=== PATIENT | male | born 1985 | race Caucasian/White ===

== ENCOUNTER 2017-12-09 12:33 | Emergency (ER) | payer BC, MEDICAID ==
[~2017-12-09] VITALS: Ht 182.9 cm; Wt 113.0 kg
[2017-12-09 12:38] VITALS: BP 128/94
[2017-12-09] MEDS ORDERED: ERYT1OIN6 EACHEYE (13:06)
== END 2017-12-09 13:16 | disposition home or self-care (01) ==
LOC: ER 12:34
DX: B34.9 Viral infection, unspecified (principal); H10.9 Unspecified conjunctivitis; G89.29 Other chronic pain; Z79.899 Other long term (current) drug therapy
CPT/HCPCS: 99283

== ENCOUNTER 2018-02-05 11:32 | Emergency (ER) | payer MEDICAID ==
[~2018-02-05] VITALS: Ht 182.9 cm; Wt 114.5 kg
[2018-02-05] MEDS ORDERED: ondansetron 4mg rapidly disintigrating tab PO ONE (12:20)
[2018-02-05] MEDS ORDERED: ALBU8.5H8 IH (13:03)
[2018-02-05] MEDS ORDERED: ONDA4TAB6 PO (13:03)
[2018-02-05 13:14] VITALS: BP 131/73
== END 2018-02-05 13:51 | disposition home or self-care (01) ==
LOC: ER 11:34
DX: J98.01 Acute bronchospasm (principal); R11.0 Nausea; R42 Dizziness and giddiness; G89.29 Other chronic pain; Z79.899 Other long term (current) drug therapy
CPT/HCPCS: 71046; 99284

== ENCOUNTER 2019-01-21 03:41 | Emergency (ER) | payer MEDICAID ==
[~2019-01-21] VITALS: Ht 182.9 cm; Wt 113.6 kg
[~2019-01-21 03:41] MED LIST: ALBU8.5H8 IH; ONDA4TAB6 PO
[2019-01-21] MEDS ORDERED: iohexol 350MG/ML 100ml bottle IV ONE (03:50)
[2019-01-21] MEDS ORDERED: LORazepam 2 mg/ml vial IV STA (04:05)
[2019-01-21] MEDS ORDERED: ondansetron/PF 4mg/2ml inj IV STA (04:05)
[2019-01-21] MEDS ORDERED: LORazepam 2 mg/ml vial IV ONE (04:10)
[2019-01-21 04:56] LABS: BASOPHILS # (AUTO) 0.1 X10'3 (0-0.2); BASOPHILS % (AUTO) 0.6 % (0-1); EOSINOPHILS # (AUTO) 0.1 X10'3 (0-0.9); EOSINOPHILS % (AUTO) 0.7 % (0-6); HEMATOCRIT 42.2 % (42.0-52.0); HEMOGLOBIN 14.8 g/dl (14.0-17.9); LYMPHOCYTES # (AUTO) 2.1 X10'3 (1.1-4.8); LYMPHOCYTES % (AUTO) 25.2 % (21-51); MEAN CORPUSCULAR HGB CONC 35.1 g/dL (33.0-36.5); MEAN CORPUSCULAR VOLUME 85.7 FL (78-98); MEAN PLATELET VOLUME 9.5 FL (7.4-10.4); MONOCYTES # (AUTO) 0.7 X10'3 (0-0.9); NEUTROPHILS # (AUTO) 5.4 X10'3 (1.8-7.7); NEUTROPHILS % (AUTO) 64.5 % (42-75); PLATELET COUNT 223 X10'3 (140-440); RED BLOOD COUNT 4.92 X10'6 (4.70-6.10); RED CELL DISTRIBUTION WIDTH 13.3 % (11.5-14.5); WHITE BLOOD COUNT 8.3 X10'3 (4.5-11.0)
[2019-01-21 05:05] LABS: ALANINE AMINOTRANSFERASE 41 U/L (12-78); ALBUMIN 4.1 G/DL (3.4-5.0); ALBUMIN/GLOBULIN RATIO 1.2 (1.1-1.5); ALKALINE PHOSPHATASE 97 IU/L (46-116); ANION GAP 7 (8-16); ASPARTATE AMINO TRANSFERASE 25 U/L (10-37); BILIRUBIN,TOTAL 0.3 MG/DL (0.1-1.0); BLOOD UREA NITROGEN 12 MG/DL (7-18); CHLORIDE 106 MMOL/L (99-107); CREATININE 1.09 MG/DL (0.60-1.10); GLUCOSE 95 MG/DL (70-104); POTASSIUM 3.6 MMOL/L (3.5-5.1); SODIUM 139 MMOL/L (135-145); TOTAL PROTEIN 7.4 G/DL (6.4-8.2); eGFR 77 ML/MIN
--- NOTE | 2019-01-21 05:09 | NUR ---
Pt just got back from CT, he was able to accomplish it without difficulty. He was smiling when he got back.
[2019-01-21 05:17] LABS: ETHANOL < 0.010 GM/DL (0.0-0.010)
--- NOTE | 2019-01-21 11:30 | NUR ---
Patient was just moved from ER bed 16 to Overflow bed 20.
--- NOTE | 2019-01-21 11:30 | NUR ---
Patient was just moved from ER bed 16 to Overflow bed 20.
[2019-01-21] MEDS ORDERED: LORazepam 1 MG tablet PO PRN (11:35)
--- NOTE | 2019-01-21 11:38 | NUR ---
MARTINEZ AMIN NOTIFIED VIA CELL PHONE THAT PT NEEDS TO BEED SEEN IN BED 20 OVERFLOW.
--- NOTE | 2019-01-21 11:50 | NUR ---
PT'S IV 20 G R AC REMOVED CANULA INTACT.
--- NOTE | 2019-01-21 13:30 | NUR ---
Patient's mother is sitting at the bedside while the patient is sleeping. Breathing is even and unlabored.
--- NOTE | 2019-01-21 14:10 | NUR ---
[facility] tried arousing patient to evaluate him, but the patient would not wake up. [facility] said that he would be back to see him.
--- NOTE | 2019-01-21 17:35 | NUR ---
Hasmukh from [facility] here to evaluate patient. Awakened patient with some difficulty. Patient eventually sat up and engaged in conversation.
--- NOTE | 2019-01-21 23:30 | NUR ---
Pt woken up and encouraged to urinate. Pt cooperative and pleasant. Urine sample collected. Pt needs met. Pt returned to bed.
[2019-01-22 00:25] LABS: CLARITY,URINE CLEAR (Clear); COLOR,URINE YELLOW (Yellow); GLUCOSE, URINE NEGATIVE (Neg); KETONES,URINE TRACE mg/dl (Neg); LEUKOCYTE ESTERASE ,URINE NEGATIVE (Neg); NITRITES, URINE NEGATIVE (Neg); OCCULT BLOOD,URINE NEGATIVE (Neg); PROTEIN,URINE NEGATIVE (Neg); UROBILINOGEN,URINE 0.2 E.U/dL (0.2-1.0)
[2019-01-22 00:31] LABS: UA COLLECTION TYPE CLN CATCH MIDSTREAM; URINE AMPHETAMINE SCREEN POSITIVE (Neg); URINE BARBITUATE SCREEN NEGATIVE (Neg); URINE BENZODIAZEPINES SCREEN NEGATIVE (Neg); URINE CANNABINOID SCREEN NEGATIVE (Neg); URINE COCAINE SCREEN NEGATIVE (Neg); URINE METHADONE SCREEN NEGATIVE (Neg); URINE OPIATE SCREEN POSITIVE (Neg); URINE PHENCYCLIDINE SCREEN NEGATIVE (Neg)
--- NOTE | 2019-01-22 01:18 | NUR ---
UA results faxed to [facility]. Unable to confirm receipt as [id number] hours.
[2019-01-22 05:52] VITALS: BP 120/64
--- NOTE | 2019-01-22 06:44 | NUR ---
Pt resting on right side with eyes closed, respirations normal
--- NOTE | 2019-01-22 09:15 | NUR ---
Patient awakened for breakfast and ate a little; now back to sleep
--- NOTE | 2019-01-22 11:00 | NUR ---
Pt visiting with sister at bedside, pleasant interactions. Pt laughing frequently with sister
--- NOTE | 2019-01-22 12:49 | NUR ---
Pt accepted to [facility] and taken to floor by DAVID Su. Belongings with him.Given his dc paperwork
[2019-01-23] MEDS ORDERED: ALBU8.5H8 INH (08:28)
[2019-01-23] MEDS ORDERED: ONDA4TAB6 PO (08:28)
== END 2019-01-22 13:01 ==
LOC: ER 03:42
DX: T14.91XA Suicide attempt, initial encounter (principal); S10.81XA Abrasion of other specified part of neck, initial encounter; G89.29 Other chronic pain; Z79.899 Other long term (current) drug therapy; X83.8XXA Intentional self-harm by other specified means, initial encounter; Y93.89 Activity, other specified; Y92.89 Other specified places as the place of occurrence of the external cause; Y99.8 Other external cause status
CPT/HCPCS: 36415; 70498; 80053; 80305; 80320; 81003; 84443; 85025; 96374; 96375; 99285; J2060; J2405; Q9967

== ENCOUNTER 2019-01-22 11:48 | Inpatient (IN) | payer MEDICAID ==
[~2019-01-22] VITALS: Ht 182.9 cm; Wt 109.0 kg
--- NOTE | 2019-01-22 12:52 | NUR ---
Admission note: Pt accepted by [facility] for Dr Bhatia for depression. Pt arrives ambulatory escorted by security to [address]. Pt arrives at 12:45. Pt on 5150 for DTS. Pt was found unconscious with belt around his neck tied to bed post. Pt has been cooperative with staff. Pt oriented to the unit. Pt has history of bulging lumbar disc surgery, Lymphoma, "Cyst in the brain" and seizures. Pt had CT neck in the ER that was negative.
[2019-01-22] MEDS ORDERED: acetaminophen 325mg tablet PO PRN ×2 (13:20)
[2019-01-22] MEDS ORDERED: magnesium hydroxide 30ml (MOM) UD suspension PO PRN (13:20)
[2019-01-22] MEDS ORDERED: mag hydrox/Alum hydrox/simeth 30ml oral suspension PO PRN (13:20)
[2019-01-22] MEDS ORDERED: LORazepam 1 MG tablet PO PRN (13:20)
[2019-01-22] MEDS ORDERED: ondansetron 4mg rapidly disintigrating tab PO PRN (13:20)
[2019-01-22] MEDS ORDERED: hydrOXYzine 25 MG tablet PO PRN (13:20)
[2019-01-22] MEDS ORDERED: loperamide 2mg capsule PO PRN (13:20)
[2019-01-22] MEDS ORDERED: tuberculin, purif. prot. deriv. 5 units/0.1ml ID ONE (13:20)
[2019-01-22] MEDS ORDERED: albuterol 2.5 MG/3 ML nebule NEB PRN (13:35)
--- NOTE | 2019-01-22 15:53 | NUR ---
Nursing Progress Note: Legal hold: 5150 Client on voluntary/involuntary status for GD/DTS/DTO. DTS Report received from ER Overflow Nurse: Siri RN Why are they here: Patient was found with his belt around his neck, tied to his bed and unconscious. Patient appeared to have attempted to hang himself. Friends called paramedics, patient was resusitated and brought to the ER. Upon questioning, patient stated "Without going into too much detail, I like to have a little fun with my lady friends." The implecation being that hanging self was possibly done for pleasure. Assessment What has happened this shift: S/I, H/I: Pt. denies A/VH: Denies Sleep: Lays on his bed with eyes closed. Wakes easily ADL's: Showerd Group attendance: Did not attend Were meds taken: No meds Ordered Any med S/E: N/A Mental Status Exam Appearance: Clean, neat Eye contact: Poor Behavior:Quiet, withdrawn Speech: Clear, concise Mood:Depressed, Tearful Affect: Animated Thought process: Clear Thought Content: Appropriate Cognition: High Functioning Insight: Evident Judgment: Impaired. Poor problem solving Interventions PRN's used:None Therapeutic interventions:Therapeutic interventions: 1:1 assessment, therapeutic conversation, medication administration/education/monitoring, reality orientation, limit setting, redirection, positive reinforcement, Q 15 min safety checks. Restraints/seclusion/emergency medication: N/A Restraints/seclusion/emergency medication: Justification of Continued Inpatient Treatment: New admission. Patient will be evaluated by Psychiatrist for further treatment.
[2019-01-22 20:13] VITALS: BP 124/58
--- NOTE | 2019-01-23 01:45 | NUR ---
Nursing Progress Note: Legal hold: 5150 Client on voluntary/involuntary status for: DTS Report received from DAVID Greer with [facility] Why are they here: Patient was found with his belt around his neck, tied to his bed and unconscious. Patient appeared to have attempted to hang himself. Friends called paramedics, patient was resuscitated and brought to the ER. Upon questioning, patient stated "Without going into too much detail, I like to have a little fun with my lady friends." The implication being that hanging self was possibly done for pleasure. Assessment What has happened this shift: Pt slept in room aside from attending HS snack. Pt denies SI or that he was ever SI, stating "It was a misunderstanding by my roommate. I have a gf and no one checked in about that...". Pt continued. " I feel fine, I'm ready to go home." Pt was inordinately thankful, saying "sweetie, thank you so much, you are so kind" as the end to every interaction. Pt stated he doesn't have a job currently, has 3 kids whom " I just adore them", and lives with a roommate. His gf visits during the week. Pt didn't offer much information regarding the attempt that brought him into the ED; insisted it was not a suicide attempt, and casually shrugged it off, stating he is just trying to sleep to pass the time. S/I, H/I: Denies A/VH: Denies Sleep: See Sleep Hour Charting ADL's: Independent Group attendance: Y - HS Snack Were meds taken: N - Only PRNs Any med S/E: N/A Mental Status Exam Appearance: Clean, neat wearing personal shirt and unit bottoms with nonskid socks Eye contact: Intermittent Behavior: Sleeping, attended HS Snack, Polite and cooperative Speech: Clear, concise Mood: "I feel fine" Affect: Animated Thought process: Linear Thought Content: Wanting to go home Cognition: A&Ox4 Insight: Fair Judgment: Impaired Interventions PRN's used: None Therapeutic interventions: Therapeutic interventions: 1:1 assessment, therapeutic conversation, positive reinforcement, Q 15 min safety checks. Restraints/seclusion/emergency medication: N/A Restraints/seclusion/emergency medication: Justification of Continued Inpatient Treatment: New admission. Patient will be evaluated by Psychiatrist for further treatment.
[2019-01-23 08:25] LABS: CHOL/HDL RATIO 3.9 (0.00-4.99); CHOLESTEROL 146 MG/DL (0-200); HDL CHOLESTEROL 37 MG/DL (35-60); LDL CHOLESTEROL 97 MG/DL (50-100); TRIGLYCERIDES 86 MG/DL (20-135)
[2019-01-23] MEDS ORDERED: ALBU8.5H8 INH (08:28)
[2019-01-23] MEDS ORDERED: ONDA4TAB6 PO (08:28)
[2019-01-23 08:39] LABS: HEMOGLOBIN A1C 5.5 % (4.5-6.2)
--- NOTE | 2019-01-23 17:00 | NUR ---
Nursing Progress Note: Legal hold: 5150 Client on voluntary/involuntary status for: DTS Report received from DAVID Francisco with [facility] Why are they here: Patient was found with his belt around his neck, tied to his bed and unconscious. Patient appeared to have attempted to hang himself. Friends called paramedics, patient was resuscitated and brought to the ER. Upon questioning, patient stated "Without going into too much detail, I like to have a little fun with my lady friends." The implication being that hanging self was possibly done for pleasure. Assessment What has happened this shift: Pt. sleeping at beginning of shift. During assessment pt. appears agitated, stating, "When is the shrink going to see me?" Pt. denies SI/HI, A/V H. When asked how pt. came ot the hospital pt. states, "I had a belt around my neck, it wasn't a suicide attempt, just some [employer] stuff". Pt. Pt.'s called informing this RN that Pt. had previous suicide attempts with cocaine and carbon monoxide poisoning and that she will be serving him paperwork for emergency custody of children and a domestic violence restraining order. Pt. attended group morning and afternoon group. Pt. Showered. Pt. became increasingly agitated and offerred PRN medication, pt. declined and went to lay down. Pt. refused his dinner. S/I, H/I: Denies A/VH: Denies Sleep: See Sleep Hour Charting ADL's: Independent. Pt. showered today. Group attendance: Y Were meds taken: N/A Any med S/E: N/A Mental Status Exam Appearance: Clean, neat wearing personal shirt and unit bottoms with nonskid socks Eye contact: Intermittent Behavior: Sleeping, attended HS Snack, Polite and cooperative Speech: Clear, concise Mood: Euthmyc Affect: Animated Thought process: Linear Thought Content: Wants to go home. Cognition: A&Ox4 Insight: Fair Judgment: Impaired Interventions PRN's used: None Therapeutic interventions: Therapeutic interventions: 1:1 assessment, therapeutic conversation, positive reinforcement, Q 15 min safety checks. Restraints/seclusion/emergency medication: N/A Restraints/seclusion/emergency medication: Justification of Continued Inpatient Treatment: New admission. Patient will be evaluated by Psychiatrist for further treatment.
--- NOTE | 2019-01-23 17:43 | NUR ---
COLLATERAL CONTACT: ROGER contacted pt's roommate, Karishma at [phone], who reports pt is being dishonest regarding the incident of the belt around pt's neck. Karishma states pt was found in his room with a belt around his neck. The belt was looped around the bedpost and he was between the wall and the bed, pulling himself away from the bedpost with his body weight causing asphyxiation. Pt was fully clothed w/ the exception of his tshirt removed. When the belt was removed from the pt's neck he was laid flat and began breathing again. Karishma provided ROGER w/ contact information for the two people who found pt in his room. ROGER made TC to roommate's friend, Juan Carlos at [phone], who reports he heard noise coming from pt's room after pt said he wasn't feeling well. Per Juan Carlos, it sounded like singing at first then like a gasping noise once he opened the bedroom door. Juan Carlos states he could not find the light switch to the room so he requested the homeowner's boyfriend to help him get the lights on. Once the light was turned on, pt was observed with belt around bedpost and his neck. Pt was between the wall and the bed, with his body weight toward the floor. Per Juan Carlos, it appeared pt had just started the asyphixiation, as he easily began breathing and consciousness. ROGER made TC to pt's roommate's boyfriend, Edwin at [phone], who reports same story as Karishma and Juan Carlos. He further reports pt's eyes were fluttering and it appeared pt was pretending to be unconscious. He reports pt has faked having cancer dx and seizure dx. Edwin agrees to gather friends together for a team meeting to discuss the events with patient and further reports this was likely a way to gain attention rather than an actual suicide attempt. Pt cannot return to Karishma's home upon discharge due to the events that have occurred. Karishma emailed text messages from pt regarding discharge planning to ROGER email for review. YO Hamm Addendum: 01/23/19 at 1851 by Lindsay Jane SS Addition to note: ROGER made TC to pt's friend, Karishma, who agreed to gather all persons at the home the night of the incident to attend an urgent Family Team Meeting (FTM). ROGER contacted pt's mother, who has agreed to attend and coordinate w/ pt's for attendance at FTM also. FTM is scheduled for 12:00 hours on 01/24/2019. YO Hamm
[2019-01-23 20:26] VITALS: BP 110/59
--- NOTE | 2019-01-24 02:52 | NUR ---
Nursing Progress Note: Legal hold: 5150 Client on involuntary status for DTS Report received from nurse with use of [facility]: DAVID Greer Why are they here: Patient was found with his belt around his neck, tied to his bed and unconscious. Patient appeared to have attempted to hang himself. Roommate called paramedics, patient was resuscitated and brought to the ER. Upon questioning, patient stated "Without going into too much detail, I like to have a little fun with my lady friends." The implication being that hanging self was possibly done for pleasure. However, pt. does have stressors present AEB separation from his and hx or substance abuse. Also, possible hx of overdose attempt. Toxicology screen positive for opiates and amphetamines. Assessment What has happened this shift: Pt. presents as restless and agitated at the beginning of the shift, and is up pacing the hallway. This communications writer introduced self and attempted to establish rapport, pt's speech is pressured with agitation, however he is cooperative. He reports concern about meeting being set-up tomorrow by manager social work. This communications writer provided active listening and voiced understanding and pt. reported content. Pt. continues to minimize events leading up to hospitalization, and he continues to appear guarded and disconnected. He accepts PRN Atrax r/t anxiety and agitation, and lays down, he remains here throughout the shift. S/I, H/I: Denies A/VH: Denies Sleep: Pt. retreats to bed at approximately 1915 following administration of PRN Atrax, remains asleep throughout the shift ADL's: Unable to assess, pt. in bed throughout the shift Group attendance: Were meds taken: N/S Any med S/E: None Mental Status Exam Appearance: Neat and appropriately dressed Eye contact: Fair Behavior: Cooperative, restless, slightly agitated, and fatigued Speech: WNL, slightly pressured when agitated Mood: Slightly agitated and restless Affect: Constricted Thought process: Linear Thought Content: Preoccupation with desire to discharge and not revealing personal information Cognition: A&O Insight: Poor to fair Judgment: Poor to fair Interventions PRN's used: Atrax Therapeutic interventions: Introduced self and attempted to establish rapport, maintained a safe and supportive environment, observed for changes in behavior and needed intervention, provided medication education, encouraged independent performance of ADLs, and maintained Q 15 in safety checks. Restraints/seclusion/emergency medication: N/A Justification of Continued Inpatient Treatment: Pt. requires interruption of current crisis and medication adjustments.
[2019-01-24 07:40] VITALS: BP 108/62
[2019-01-24] MEDS ORDERED: LORazepam 2 mg/ml vial IM PRN (14:50)
[2019-01-24] MEDS ORDERED: diphenhydrAMINE 50 mg/ml inj IM PRN (14:50)
[2019-01-24] MEDS ORDERED: diphenhydrAMINE 25mg capsule PO PRN (14:50)
[2019-01-24] MEDS ORDERED: LORazepam 1 MG tablet PO PRN (14:50)
[2019-01-24] MEDS ORDERED: haloperidol 5mg tablet PO PRN (14:50)
[2019-01-24] MEDS ORDERED: haloperidol lactate 5mg/ml inj IM PRN (14:50)
--- NOTE | 2019-01-24 15:13 | NUR ---
1:1 DISCHARGE PLANNING FTM occurred. Pt had difficulty providing transperancy of his bx with his support system. Pt admitted the belt around his neck was actually a suicide attempt. SW provided w/ Temporary Restraining Order and Custody paperwork for pt. SW provided paperwork to pt with security present. Pt response was blunted. SW spoke w/ pt's mother, who reports she will assist pt in entering tx services for substance use disorder upon discharge. Lindsay Jane, EMILYW
--- NOTE | 2019-01-24 17:48 | NUR ---
Nursing Progress Note: Legal hold: 5150 Client on involuntary status for DTS Report received from nurse with use of [facility]: DAVID Francisco Why are they here: Patient was found with his belt around his neck, tied to his bed and unconscious. Patient appeared to have attempted to hang himself. Roommate called paramedics, patient was resuscitated and brought to the ER. Upon questioning, patient stated "Without going into too much detail, I like to have a little fun with my lady friends." The implication being that hanging self was possibly done for pleasure. However, pt. does have stressors present AEB separation from his and hx or substance abuse. Also, possible hx of overdose attempt. Toxicology screen positive for opiates and amphetamines. During family session pt. admitted that it was a suicde attempt. Assessment What has happened this shift: Pt. did not go to group. When attempting to do 1:1, pt. preteningding to be asleep. 1:1 eventually done at bedside. Pt. gave minimal response to questions during 1:1. Pt. states, "I just want to go home". Pt. refused breakfast. Pt. had meeting with family and staff at noon where pt. reportedly confessed to a suicide attempt. Pt. ate his lunch. Pt. given paper work for restraining order his placed against him as well as emergency custody of the children his will obtain. Pt. began to cry when he recieved this information but did not act out. S/I, H/I: Denies A/VH: Denies Sleep: Pt. retreats to bed at approximately 1915 following administration of PRN Atrax, remains asleep throughout the shift ADL's: Unable to assess, pt. in bed throughout the shift Group attendance: Were meds taken: N/S Any med S/E: None Mental Status Exam Appearance: Neat and appropriately dressed Eye contact: Fair Behavior: Cooperative, restless, slightly agitated, and fatigued Speech: WNL, slightly pressured when agitated Mood: Slightly agitated and restless Affect: Constricted Thought process: Linear Thought Content: Preoccupation with desire to discharge and not revealing personal information Cognition: A&O Insight: Poor to fair Judgment: Poor to fair Interventions PRN's used: Atrax Therapeutic interventions: Introduced self and attempted to establish rapport, maintained a safe and supportive environment, observed for changes in behavior and needed intervention, provided medication education, encouraged independent performance of ADLs, and maintained Q 15 in safety checks. Restraints/seclusion/emergency medication: N/A Justification of Continued Inpatient Treatment: Pt. requires interruption of current crisis and medication adjustments.
[2019-01-24 20:40] VITALS: BP 130/77
--- NOTE | 2019-01-25 01:25 | NUR ---
Nursing Progress Note: Legal hold: 5150 Client on involuntary status for DTS Report received from nurse with use of [facility]: Binh RN Why are they here: Patient was found with his belt around his neck, tied to his bed and unconscious. Patient appeared to have attempted to hang himself. Roommate called paramedics, patient was resuscitated and brought to the ER. Upon questioning, patient stated "Without going into too much detail, I like to have a little fun with my lady friends." The implication being that hanging self was possibly done for pleasure. However, pt. does have stressors present AEB separation from his and hx or substance abuse. Also, possible hx of overdose attempt. Toxicology screen positive for opiates and amphetamines. FTM took place on 01/24/19, and pt. admitted to lying to friends and family about health conditions and admitted to attempted suicide. Pt. was then served with divorce papers and restraining order. Assessment What has happened this shift: Pt. laying in bed at the beginning of the shift, he reports that he is feeling tired after receiving Ativan earlier following the family team meeting. When this newswriter questioned pt. regarding the meeting he stated, "The meeting went OK, but I jaylin received a double whammy, I got served paperwork afterwards. I just need to nap for bit and then I will get up later." Pt. continues to present as cooperative, withdrawn, guarded, and superficial (minimizing any feelings and the events leading up to hospitalization). Pt. remains in bed throughout the shift, and refuses to get up to attend HS snack. Attempted complete 1:1 at bedside, however pt. presenting as fatigued and does not open his eyes during assessment. He will answer direct questions minimally with a yes/no response. Pt. denies any S/I, depression, or anxiety. He reports he has been sleeping well, and has been attending groups. However, when this newswriter read AM shift note, it was discovered that pt. had refused to go to groups today. S/I, H/I: Denies A/VH: Denies Sleep: Pt. reports he has been sleeping well, denies any nightmares ADL's: Unable to assess, pt. in bed throughout the shift Group attendance: Pt. reports that he has been attending groups. However, when this newswriter read AM shift note, it was discovered that pt. had refused to go to groups today. Were meds taken: N/A, none scheduled Any med S/E: None Mental Status Exam Appearance: Neat and appropriately dressed Eye contact: Fair Behavior: Cooperative, withdrawn, isolative, and fatigued. Psychomotor activity is WNL Speech: Soft, only answers direct questions minimally with yes/no response Mood: Guarded, appears depressed Affect: Blunted Thought process: Linear Thought Content: Guarded and superficial, difficult to assess Cognition: A&O X4 Insight: Poor Judgment: Poor Interventions PRN's used: None Therapeutic interventions: Maintained a safe and supportive environment, insured contract for safety, observed for changes in behavior and needed intervention, encouraged independent performance of ADLs, and maintained Q 15 in safety checks. Restraints/seclusion/emergency medication: N/A Justification of Continued Inpatient Treatment: Pt. continues to require a safe and supportive environment and interruption of current crisis.
[2019-01-25 08:00] VITALS: BP 105/64
--- NOTE | 2019-01-25 15:03 | NUR ---
Discharge note: Discharged at 1503, nissa DANA. provided with all belongings, discharge instructions and stated understanding of discharge plan. Escorted to Lobby by ROBERT Infante. Transportation provided by his mother. Addendum: 01/25/19 at 1507 by Makayla Etienne RN Patient stated his intention to honor restraining order, understanding that violation could result in him loosing visitation rights with his three daughters.
== END 2019-01-25 15:03 | disposition home or self-care (01) | DRG 755 ==
LOC: ADULT MH 11:48
PROVIDERS: ADMIT Psychiatry & Neurology Psychiatry; ATTEND Psychiatry & Neurology Psychiatry
DX: F43.24 Adjustment disorder with disturbance of conduct (principal); G93.40 Encephalopathy, unspecified; R09.01 Asphyxia; R45.851 Suicidal ideations; F32.9 Major depressive disorder, single episode, unspecified; G89.29 Other chronic pain; M54.9 Dorsalgia, unspecified; F19.10 Other psychoactive substance abuse, uncomplicated
CPT/HCPCS: 36415; 80061; 83036; 87070; 99285; Q0163; Q0177

== ENCOUNTER 2019-02-04 07:52 | Emergency (ER) | payer MEDICAID ==
[~2019-02-04] VITALS: Ht 182.9 cm; Wt 109.1 kg
[~2019-02-04 07:52] MED LIST changes: +ALBU8.5H8 INH
[2019-02-04 08:01] VITALS: BP 160/84
[2019-02-04] MEDS ORDERED: LORA1TAB PO (08:43)
== END 2019-02-04 08:53 | disposition home or self-care (01) ==
LOC: ER 07:52
DX: F41.9 Anxiety disorder, unspecified (principal); F32.9 Major depressive disorder, single episode, unspecified; R41.3 Other amnesia; G89.29 Other chronic pain; Z79.899 Other long term (current) drug therapy
CPT/HCPCS: 99284

== ENCOUNTER 2019-03-19 15:29 | Emergency (ER) | payer BC, MEDICAID ==
[~2019-03-19] VITALS: Ht 182.9 cm; Wt 108.0 kg
[2019-03-19 15:40] VITALS: BP 142/94
[2019-03-19] MEDS ORDERED: LORA1TAB PO (15:48)
== END 2019-03-19 16:06 | disposition home or self-care (01) ==
LOC: ER 15:30
DX: F41.9 Anxiety disorder, unspecified (principal); F32.9 Major depressive disorder, single episode, unspecified; G89.29 Other chronic pain; Z76.0 Encounter for issue of repeat prescription; Z79.899 Other long term (current) drug therapy
CPT/HCPCS: 99283

== ENCOUNTER 2019-03-28 03:26 | Emergency (ER) | payer BC, MEDICAID ==
[~2019-03-28] VITALS: Ht 182.9 cm; Wt 109.1 kg
[2019-03-28 03:36] VITALS: BP 139/73
[2019-03-28] MEDS ORDERED: LORA1TAB PO (04:10)
== END 2019-03-28 04:19 | disposition home or self-care (01) ==
LOC: ER 03:26
DX: F41.9 Anxiety disorder, unspecified (principal); F32.9 Major depressive disorder, single episode, unspecified; G89.29 Other chronic pain; F17.210 Nicotine dependence, cigarettes, uncomplicated; Z79.899 Other long term (current) drug therapy
CPT/HCPCS: 99284

== ENCOUNTER 2019-06-02 08:54 | Emergency (ER) | payer BC, MEDICAID ==
[~2019-06-02] VITALS: Ht 182.9 cm; Wt 109.1 kg
[2019-06-02 09:14] VITALS: BP 137/59
== END 2019-06-02 09:16 | disposition home or self-care (01) ==
LOC: ER 08:56
DX: F10.99 Alcohol use, unspecified with unspecified alcohol-induced disorder (principal); F15.90 Other stimulant use, unspecified, uncomplicated; G89.29 Other chronic pain; F41.9 Anxiety disorder, unspecified; F32.9 Major depressive disorder, single episode, unspecified; F17.210 Nicotine dependence, cigarettes, uncomplicated; Z79.899 Other long term (current) drug therapy; Y90.9 Presence of alcohol in blood, level not specified
CPT/HCPCS: 99283

== ENCOUNTER 2019-06-17 00:07 | Emergency (ER) | payer BC, MEDICAID ==
[~2019-06-17] VITALS: Ht 182.9 cm; Wt 109.1 kg
[2019-06-17] MEDS ORDERED: SULF1TAB49 PO (00:27)
[2019-06-17] MEDS ORDERED: CEPH500C5 PO (00:27)
[2019-06-17] MEDS ORDERED: clindamycin phosphate 150mg/ml inj. IM ONE (00:30)
[2019-06-17 00:46] VITALS: BP 129/77
== END 2019-06-17 00:48 | disposition home or self-care (01) ==
LOC: ER 00:08
DX: L02.415 Cutaneous abscess of right lower limb (principal); L02.416 Cutaneous abscess of left lower limb; G89.29 Other chronic pain; F15.90 Other stimulant use, unspecified, uncomplicated; F17.210 Nicotine dependence, cigarettes, uncomplicated
CPT/HCPCS: 96372; 99283; J3490

== ENCOUNTER 2021-06-27 07:04 | Emergency (ER) | payer MEDICAID ==
[~2021-06-27] VITALS: Ht 182.9 cm; Wt 100.0 kg
[~2021-06-27 07:04] MED LIST changes: +ALBU8.5H17 IH; +ALBU8.5H17 INH; -ALBU8.5H8 IH; -ALBU8.5H8 INH
[2021-06-27 07:07] VITALS: BP 142/94
[2021-06-27 08:17] LABS: CLARITY,URINE SLIGHTLY CLOUDY (Clear); COLOR,URINE YELLOW (Yellow); UA COLLECTION TYPE CLN CATCH MIDSTREAM
[2021-06-27 08:18] LABS: GLUCOSE, URINE NEGATIVE (Neg); KETONES,URINE NEGATIVE (Neg); LEUKOCYTE ESTERASE ,URINE NEGATIVE (Neg); NITRITES, URINE NEGATIVE (Neg); OCCULT BLOOD,URINE LARGE (Neg); PROTEIN,URINE TRACE mg/dl (Neg); UROBILINOGEN,URINE 0.2 E.U/dL (0.2-1.0)
[2021-06-27] MEDS ORDERED: acetaminophen 325mg tablet PO ONE (08:20)
[2021-06-27] MEDS ORDERED: ketorolac tromethamine 15mg/ml inj. IM ONE (08:20)
[2021-06-27 08:24] LABS: SQUAMOUS EPITHELIAL CELL,UR FEW /LPF (FEW)
[2021-06-27 08:25] LABS: MUCUS STRANDS FEW /LPF (Neg)
[2021-06-27 08:26] LABS: COARSE GRANULAR CAST 0-3 /LPF (NEGATIVE)
[2021-06-27 08:27] LABS: RBC,URINE 20-50 /HPF (0-2)
[2021-06-27 08:28] LABS: WBC,URINE 0-4 /HPF (0-4)
[2021-06-27 08:29] LABS: BACTERIA,URINE FEW /HPF (Neg)
[2021-06-27] MEDS ORDERED: LEVO500T89 PO (08:35)
[2021-06-27] MEDS ORDERED: CefTRIAXone 1000mg IM Kit (w/lidocaine diluent) IM STA (08:35)
[2021-06-27 09:00] LABS: BASOPHILS % (AUTO) 0.4 % (0-1); EOSINOPHILS % (AUTO) 0.6 % (0-6); LYMPHOCYTES # (AUTO) 1.3 X10'3 (1.1-4.8); LYMPHOCYTES % (AUTO) 19.2 % (21-51); MEAN CORPUSCULAR HEMOGLOBIN 29.6 PG (27.0-31.0); MEAN CORPUSCULAR HGB CONC 34.1 g/dL (33.0-36.5); MEAN CORPUSCULAR VOLUME 86.6 FL (78-98); MEAN PLATELET VOLUME 7.5 FL (7.4-10.4); MONOCYTES # (AUTO) 0.7 X10'3 (0-0.9); MONOCYTES % (AUTO) 10.3 % (2-12); NEUTROPHILS # (AUTO) 4.6 X10'3 (1.8-7.7); NEUTROPHILS % (AUTO) 69.5 % (42-75); PLATELET COUNT 264 X10'3 (140-440); RED BLOOD COUNT 4.39 X10'6 (4.70-6.10); RED CELL DISTRIBUTION WIDTH 13.6 % (11.5-14.5); WHITE BLOOD COUNT 6.7 X10'3 (4.5-11.0)
[2021-06-27 09:16] LABS: ALANINE AMINOTRANSFERASE 38 U/L (12-78); ALBUMIN 3.1 G/DL (3.4-5.0); ALBUMIN/GLOBULIN RATIO 0.8 (1.1-1.5); ALKALINE PHOSPHATASE 117 IU/L (46-116); ANION GAP 3 (8-16); ASPARTATE AMINO TRANSFERASE 19 U/L (10-37); BILIRUBIN,TOTAL 0.3 MG/DL (0.1-1.0); BLOOD UREA NITROGEN 14 MG/DL (7-18); CALCIUM 8.4 MG/DL (8.5-10.1); CHLORIDE 105 MMOL/L (99-107); GLUCOSE 82 MG/DL (70-104); POTASSIUM 4.3 MMOL/L (3.5-5.1); SODIUM 137 MMOL/L (135-145); TOTAL CARBON DIOXIDE 29.5 MMOL/L (24-32); eGFR 84 ML/MIN
== END 2021-06-27 10:08 | disposition home or self-care (01) ==
LOC: ER 07:05
DX: N45.1 Epididymitis (principal); N50.811 Right testicular pain; G89.29 Other chronic pain; F41.9 Anxiety disorder, unspecified; F32.9 Major depressive disorder, single episode, unspecified; Z79.2 Long term (current) use of antibiotics; Z79.899 Other long term (current) drug therapy
CPT/HCPCS: 36415; 76870; 80053; 81001; 84145; 85025; 86592; 87491; 87591; 93976; 96372; 99284; J0696; J1885

== ENCOUNTER 2023-07-31 15:25 | Emergency (ER) | payer MEDICAID ==
[~2023-07-31] VITALS: Ht 185.4 cm; Wt 100.0 kg
[2023-07-31 15:38] VITALS: BP 154/100; PULSE 87; TEMP 96.5; O2SAT 96
[2023-07-31] MEDS ORDERED: cephalexin 250mg capsule PO ONE (16:25)
[2023-07-31] MEDS ORDERED: LIDOcaine 1%/PF 5ML 10 MG/ML VIAL IM ONE (16:25)
[2023-07-31] MEDS ORDERED: HYDROcodone/acetaminophen 5mg/325mg tablet PO ONE (16:25)
[2023-07-31] MEDS: TETanus/Pertussis (Acell)/Diphther VAC/PF (Tdap-Adult) 0.5ml syringe IMVAC ONE ×2 (16:38→16:45)
[2023-07-31 17:23] VITALS: RESP 20
[2023-07-31] MEDS ORDERED: CEPH-585 PO (17:31)
== END 2023-07-31 18:11 | disposition home or self-care (01) ==
LOC: ER 15:25
DX: S61.213A Laceration without foreign body of left middle finger without damage to nail, initial encounter (principal); G89.29 Other chronic pain; F41.9 Anxiety disorder, unspecified; F32.9 Major depressive disorder, single episode, unspecified; F15.90 Other stimulant use, unspecified, uncomplicated; F17.210 Nicotine dependence, cigarettes, uncomplicated; Z98.890 Other specified postprocedural states; W26.0XXA Contact with knife, initial encounter; Y93.89 Activity, other specified; Y92.89 Other specified places as the place of occurrence of the external cause; Y99.8 Other external cause status
CPT/HCPCS: 12001; 90715; 99283; J7030; A6258; A6449